=== PATIENT | female | born 1980 | race African-American/Black ===

== ENCOUNTER 2020-10-01 01:11 | Day surgery (SDC) | payer OTHER, SELFPAY ==
[2020-09-27 15:20] VITALS: BMI 34.2
--- NOTE | 2020-09-30 20:43 | PM.IMHP ---
H&P: HPI History of Present Illness Date/Time: 09/30/20 20:43 39yo menorrhagia requesting permanent sterilization. Tubal papers signed on 08/03/20. Desires bilateral tubal sterilization with endometrial ablation. Chief Complaint: Menorrhagia and Desires Bilateral Tubal Sterilization Review of Systems Review of Systems: All systems reviewed & are unremarkable except as noted in HPI and below Constitutional: Constitutional: Reports no additional constitutional complaints Eyes: Eyes: Reports no additional eye complaints ENT: Reports system reviewed and no additional complaints, except as documented Cardiovascular: Cardiovascular: Reports no additional cardiovascular complaints Respiratory: Respiratory: Reports no additional respiratory complaints Gastrointestinal: Gastrointestinal: Reports no additional gastrointestinal complaints Genitourinary: Genitourinary: Reports no additional female genitourinary complaints Musculoskeletal: Musculoskeletal: Reports no additional musculoskeletal complaints Integumentary/Breasts: Skin/Breast: Reports system reviewed and no additional complaints, except as docu Neurologic: Reports system reviewed and no additional complaints, except as documented Psychiatric: Psychiatric: Reports no additional psychiatric complaints Endocrine: Endocrine: Reports no additional endocrine complaints Hematologic/Lymphatic: Hematologic/Lymphatic: Reports no additional hematologic/lymphatic complaints Allergic/Immunologic: Allergic/Immunologic: Reports no additional allergic/immunologic complaints [facility] Past Medical History Medical History (Updated 09/30/20 @ 21:03 by Yoni Mckenzie MD) BV (bacterial vaginosis) Lori infection CAROLIN (generalized anxiety disorder) GERD (gastroesophageal reflux disease) History of multiple miscarriages HSV (herpes simplex virus) infection IBS (irritable bowel syndrome) MDD (major depressive disorder) Migraine Trichomonal infection Surgical History Surgical History (Updated 09/30/20 @ 20:58 by Yoni Mckenzie MD) History of appendectomy History of section Family History Family History (Updated 09/30/20 @ 20:59 by Yoni Mckenzie MD) Other Depression Diabetes mellitus Heart disease Hypertension Social History Social History (Updated 09/30/20 @ 21:00 by Yoni Mckenzie MD) Smoking status: Never smoker Substance use: never Living arrangements: with family Occupation/Education: unemployed Gender identity (if verbalized by the patient): Female Sexual Orientation (if Verbalized by the Patient): Straight or Heterosexual Spiritual care concerns: No Agree to blood products: Yes Meds Home Medications and Allergies Home Medications Medication Instructions Recorded Confirmed Type amitriptyline 25 mg PO HS PRN 09/27/20 09/27/20 History citalopram 20 mg PO PRN PRN 09/27/20 09/27/20 History dicyclomine 10 mg PO PRN PRN 09/27/20 09/27/20 History gabapentin 300 mg PO PRN PRN 09/27/20 09/27/20 History meclizine 25 mg PO PRN PRN 09/27/20 09/27/20 History omeprazole 40 mg PO DAILY 09/27/20 09/27/20 History zolpidem 5 mg PO PRN PRN 09/27/20 09/27/20 History Allergies Allergy/AdvReac Type Severity Reaction Status Date / Time No Known Allergies Allergy Verified 09/27/20 14:51 Exam Const: General: cooperative, healthy appearing, comfortable, no acute distress, well developed, alert, awake and Physically active Nutritional Appearance: average body habitus, well nourished and obese Orientation/consciousness: patient oriented x3 Limitations: no limitations HENMT: Head: normal to inspection Eyes: General: appearance normal, both eyes and all related structures Neck: Neck: normal visual inspection and full ROM Chest: Chest palpation & inspection: normal inspection of the chest Breast/axilla palpation: normal palpation of the breasts Resp: Effort & Inspection: normal respiratory effort Ausculta
[2020-10-01] VITALS (12 sets, daily range): BP systolic 116–149; BP diastolic 67–85; PULSE 63–100; RESP 14–20; TEMP 36.3–36.6; O2SAT 92–100
[2020-10-01] MEDS: ACETAMINOPHEN 500 MG TABLET 1000 MG PO (06:30)
[2020-10-01] MEDS: LACTATED RINGERS 1,000 ML 30 ML IV CONT ×2 (06:36→08:47)
--- NOTE | 2020-10-01 06:52 | WPDHPUPDATE1 ---
History and Physical Update Update Date/Time: 10/01/20 06:52 History and Physical has been reviewed, including an updated exam of the patient. There are NO changes in the patient's condition. Risks, benefits, and alternatives have been discussed and questions answered. Patient agrees to proceed with procedure. 39yo menorrhagia requesting permanent sterilization. Tubal papers signed on 08/03/20. Desires bilateral tubal sterilization with endometrial ablation. Assessment and plan (1) Encounter for female sterilization procedure: Code(s): Z30.2 - Encounter for sterilization Status: Acute Assessment and Plan: Laparoscopic Bilateral Tubal sterilization with bilateral salpingectomy under general anesthesia (2) Menorrhagia: Code(s): N92.0 - Excessive and frequent menstruation with regular cycle Status: Acute Assessment and Plan: hysteroscopy with dilation and curettage of uterus and Endometrial ablation
--- NOTE | 2020-10-01 06:55 | WPDANESEPPF ---
Anes - Initial Pre Proc Eval Procedure: Operation Date: 10/01/20 07:30 Proposed Procedures p Laparoscopic Bilateral Salpingectomy for Sterilization, Hysteroscopy with Endometrial Ablation - Yoni Mckenzie MD Date/Time: 10/01/20 06:55 Surgeon: Yoni Mckenzie MD Pre Op Diagnosis: sterilization Patient Data Age: 40 Gender: F Height: 1.52 m Weight: 79.4 kg Allergies Allergy/AdvReac Type Severity Reaction Status Date / Time No Known Allergies Allergy Verified 09/27/20 14:51 Home Medications Medication Instructions Recorded Confirmed Type amitriptyline 25 mg PO HS PRN 09/27/20 09/27/20 History citalopram 20 mg PO PRN PRN 09/27/20 09/27/20 History dicyclomine 10 mg PO PRN PRN 09/27/20 09/27/20 History gabapentin 300 mg PO PRN PRN 09/27/20 09/27/20 History meclizine 25 mg PO PRN PRN 09/27/20 09/27/20 History omeprazole 40 mg PO DAILY 09/27/20 09/27/20 History zolpidem 5 mg PO PRN PRN 09/27/20 09/27/20 History Patient hx anesthesia problems: none Family hx anesthesia problems: none PMFSH Past Medical History Medical History (Updated 09/30/20 @ 21:03 by Yoni Mckenzie MD) BV (bacterial vaginosis) Lori infection CAROLIN (generalized anxiety disorder) GERD (gastroesophageal reflux disease) History of multiple miscarriages HSV (herpes simplex virus) infection IBS (irritable bowel syndrome) MDD (major depressive disorder) Migraine Trichomonal infection Surgical History Surgical History (Updated 09/30/20 @ 20:58 by Yoni Mckenzie MD) History of appendectomy History of section Family History Family History (Updated 09/30/20 @ 20:59 by Yoni Mckenzie MD) Other Depression Diabetes mellitus Heart disease Hypertension Social History Social History (Updated 09/30/20 @ 21:00 by Yoni Mckenzie MD) Smoking status: Never smoker Substance use: never Living arrangements: with family Occupation/Education: unemployed Gender identity (if verbalized by the patient): Female Sexual Orientation (if Verbalized by the Patient): Straight or Heterosexual Spiritual care concerns: No Agree to blood products: Yes Anes - Eval Final PreProcedure Day of Procedure 10/01/20 06:55 Patient weight: obese Heart: regular rate and rhythm Lungs: clear to auscultation Airway: Mallampati scale class II Neurological: alert and oriented Last oral intake: >/= 8 hours ASA classification: II Emergent: no Anesthetic plan: proceed Anesthesia type and monitoring: general ETT and standard monitoring Informed Consent: The patient's anesthetic plan and its attendant risks and benefits were discussed with the patient/family/POA. Questions were solicited and answers provided to the satisfaction of the patient/family/POA.
[2020-10-01] MEDS: KETOROLAC 15 MG/ML VIAL (*BKC) IV PUSH (07:00)
[2020-10-01] MEDS: ceFAZolin 2 GM/D5W 50 ML 2 GM/50 ML BAG IVPB (07:28)
[2020-10-01] MEDS: ONDANSETRON INJ 4 MG/2 ML VIAL IV PUSH (09:09)
--- NOTE | 2020-10-01 09:11 | P.OP_ITS ---
Procedure Note - Detailed Date of Procedure 10/01/20 Pre-op Diagnosis desires bilateral tubal sterilization Menorrhagia Post-op Diagnosis same ( desires bilateral tubal sterilization, menorrhagia) Procedure Performed laparoscopic bilateral tubal sterilization with bilateral salpingectomy Hysteroscopy with D&C and endometrial ablation with sania Surgeon Yoni Mckenzie MD Social Problems Specialist Rach Anesthesia general Indications desires bilateral tubal sterilization and menorrhagia Findings uterus 9 cm cavity normal tubal ostia bilateral normal cavity normal isthmic normal endocervix cervix 3 cm long Normal tubes ovaries corpus luteum cyst left ovary small endometriosis anterior fundus Adhesions omentum anterior abdominal wall Hemostasis excellent Bilateral salpingectomy completed successfully Description of Procedure informed consent obtained patient taken to the operating room she was given IV general anesthesia was oral tracheal E intubated without difficulty. The a bdomen was prepped and draped in the usual sterile fashion with the patient in the semi lithotomy position in Samuel stirrups. A time-out was performed. Bladder was emptied of urine speculum was placed in the vagina hulka tenaculem was placed to the uterine cervix. Infiltration of the umbilicus with 10 cc of course Marcaine plain was followed by an infraumbilical incision after which a 5 mm trocar and cannula were inserted under direct vision in the umbilicus. 10 cc placed in the right and left lateral quadrants under direct vision with transillumination of the abdominal wall followed by incisions and insertion of 5 mm trocar and cannulas. Grasping the fallopian tube and a coagulation of the proximal tube arcuate vessel and the fimbria ovarian vessels was followed by endo renetta removing the fallopian tubes bilaterally these were removed and sent to pathology. The gas was removed the instruments removed the incisions were suture approximated with 3 0 Vicryl suture and Dermabond to the skin. Speculum was replaced in the vagina the Hulka was removed and a single-tooth neck was placed on the anterior lip of the cervix Hegar dilation to a 8. And measuring the uterine cavity with uterine sound to 9 cm and the cervix 3 cm was followed by hysteroscopic examination of the uterine cavity revealing the above findings normal period endometrial curettage was then performed and specimen sent to pathology. The sania endometrial ablation was then performed without difficulty over 120 seconds and post endometrial ablation confirmed excellent ablation. The instruments removed the patient was extubated in the operating room taken recovery room stable condition family was informed the findings Implants none Estimated Blood Loss 20 IV Fluids 1,000 Urine Output 15 Drains No Packing No Pathology yes ( right and left complete fallopian tubes, endometrial curettings) Complications None Condition stable Disposition same day
[2020-10-01] MEDS: fentaNYL CITRATE INJ (*CRX) 100 MCG/2 ML VIAL 25 MCG IV PUSH ×2 (09:44→10:01)
[2020-10-01] MEDS: diphenhydrAMINE HCl INJ 50 MG/ML VIAL 12.5 MG IV PUSH (10:24)
[2020-10-01] MEDS: oxyCODONE HCL (*CRX) 5 MG TAB IR PO (10:51)
--- NOTE | 2020-10-01 16:32 | SUR.PHASEII ---
PATIENT UNABLE TO BLASTING [employer] PAIN MED SCRIPT FROM THE HOSPITAL. DR. CRUZ CALLED WHO STATED HE WOULD CALL IT IN TO HER PHARMACY SHORTLY. PATIENT NOTIFIED AND WILL HAVE SOMEONE PICK IT UP THIS EVENING.
== END 2020-10-01 11:52 | disposition home or self-care (01) ==
PROVIDERS: PCP Nurse Practitioner Family; Visit Provider Obstetrics & Gynecology
PROC: 0UDB8ZZ Extraction of Endometrium, Via Natural or Artificial Opening Endoscopic (ICD-10-PCS; CPT 58558; principal; 2020-10-01 07:30)
DX: Z30.2 Encounter for sterilization (principal); N92.0 Excessive and frequent menstruation with regular cycle; N80.3 Endometriosis of pelvic peritoneum; N73.6 Female pelvic peritoneal adhesions (postinfective); N83.202 Unspecified ovarian cyst, left side; F41.1 Generalized anxiety disorder; K21.9 Gastro-esophageal reflux disease without esophagitis; K58.9 Irritable bowel syndrome, unspecified; E66.9 Obesity, unspecified; Z68.38 Body mass index [BMI] 38.0-38.9, adult
CPT/HCPCS: 58563; 58661; 88302; 88305; A9270; J0690; J1100; J1200; J1885; J2250; J2405; J2704; J3010; J7030; J7120